=== PATIENT | female | born 1935 | race Hispanic/Latino ===

== ENCOUNTER 2017-04-09 16:04 | Inpatient (IN) | payer MEDICARE ==
[2017-04-09] MEDS ORDERED: Succinylcholine Chloride 20 MG/ML 10 ml SYRINGE FS ONE (16:24)
[2017-04-09] MEDS ORDERED: Fentanyl 100 MCG/2 ML VIAL ONE ×2 (16:24→16:31)
[2017-04-09] MEDS ORDERED: manNITOL 20% 500 ML ONE (16:24)
[2017-04-09] MEDS ORDERED: Calcium Chloride 1 GM/10 ML Abboject SYRINGE ONE (16:24)
[2017-04-09 16:43] LABS: Hematocrit 37.2 % (36.0-47.0); Mean Platelet Volume 7.5 fL (7.4-10.4); Red Blood Cell (RBC) Count 3.63 mill/uL (4.20-5.40); White Blood Cell (WBC) Count 24.4 thou/uL (4.8-10.8)
[2017-04-09] MEDS ORDERED: niCARdipine 20MG In NaCl 0 MG/0 ML BAG ONE (16:55)
[2017-04-09] MEDS ORDERED: Propofol 1,000 MG/100 ML VIAL IV ONE (16:55)
[2017-04-09] MEDS ORDERED: Labetalol HCl 100 MG/20 ML VIAL ONE (16:55)
[2017-04-09 17:01] LABS: Band 1 % (5-11); Neutrophil 94 % (42-75)
--- NOTE | 2017-04-09 17:02 | CT ---
CT HEAD WITHOUT IV CONTRAST: Date: 04/09/17 HISTORY: Post fall. COMPARISON: 10/11/14. FINDINGS: There is a large area of increased density seen within the left cerebral hemisphere involving predomi nantly the left frontal lobe, and this large area of increased density is consistent with parenchymal hemorrhage which measures 8.5 cm AP x 5.0 cm transverse. There is evidence of subarachnoid hemorrhag e within the frontal lobes bilaterally as well. There is intraventricular extension of hemorrhage wit h dilatation of the ventricular system bilaterally when compared to the prior exam. There is edema malin rrounding the large area of hemorrhage in the left cerebral hemisphere. There is shift of the midline structures to the right measuring 15-16 mm. There is mild narrowing in the region of the basilar cisterns when compared to the prior exam, suggesting impending uncal hernia tion as well. There is an area of encephalomalacia in the right anterior frontal lobe consistent with prior area of hemorrhage which was noted on the prior exam. No calvarial fracture is seen. Visualized paranasal sinuses and mastoid air cells are clear. IMPRESSION: 1. Large parenchymal hematoma in the left cerebral hemisphere, as well as bilateral subarachnoid hem orrhage and intraventricular extension of hemorrhage. 2. Shift of the midline structures to the right measuring 15-16mm. There is also effacement of the b asilar cisterns when compared to the prior exam in 2014 suggesting impending uncal herniation as well . There is evidence of mild hydrocephalus when compared to the prior exam. 3. Encephalomalacia right anterior frontal lobe. 4. No evidence of a calvarial fracture Above findings discussed with Dr. Gentile on 04/09/17 at 1618 hours. CODE CR. POS: [facility]
[2017-04-09 17:03] LABS: Troponin I 0.617 ng/mL (< 0.028)
[2017-04-09 17:04] LABS: ALT (SGPT) 22 U/L (8-55); AST (SGOT) 46 U/L (5-34); Alkaline Phosphatase 102 U/L (40-150); Anion Gap 21 mmol/L (10-20); BUN (Urea Nitrogen) 19 mg/dL (9.8-20.1); Bilirubin, Total 0.9 mg/dL (0.2-1.2); Calc. Creatinine Clearance 0 mL/min (70-130); Calcium 8.7 mg/dL (7.8-10.44); Carbon Dioxide 16 mmol/L (23-31); Chloride 104 mmol/L (98-107); Estimated GFR-MDRD 58; Globulin 3.3 g/dL (2.4-3.5); Protein, Total 7.4 g/dL (6.0-8.3)
[2017-04-09 17:10] LABS: Oxyhemoglobin 97.7 % (94.0-97.0); Sodium 138 mmol/L (135-148)
[2017-04-09 17:11] LABS: Mechanical Tidal Volume 400 ml; Mode SIMV/PS; Modified Allen's Test POSITIVE; Pressure Support 10 cmH2O; Vent YES
--- NOTE | 2017-04-09 17:21 | PRG ---
DATE OF SERVICE: 04/09/2017 SUBJECTIVE: Ms. Walls is an 82-year-old female that presented to the emergency department. She unde rwent a noncontrast head CT which revealed a very large hemispheric left-sided dominant hemispheric i ntraparenchymal hemorrhage with substantial degree of midline shift and associated herniation. OBJECTIVE: Upon my presentation to the emergency room, patient was nonresponsive. She did have some agonal breathing. She had fixed pupils bilaterally. She did not respond to stimulation. ASSESSMENT AND PLAN: Ms. Walls has suffered a very large intracerebral hemorrhage. This is one that in my opinion is nonoperative and is almost certainly to be a terminal hemorrhage. The ER physician has spoken to the family and for the time being, they want her to be full code until further family can arrive at the hospital. I have relayed to the ER physician that our plans are to pursue this wit h medical management alone without plans for surgery given what is the devastating nature of her hemo rrhage.
[2017-04-09 17:59] LABS: Bilirubin Negative (Negative); Blood, Urine Trace (Negative); Glucose, Urine (Dipstick) 250 mg/dL (Negative); Ketone, Urine 15 mg/dL (Negative); Nitrite Negative (Negative); Protein, Urine (Dipstick) Negative (Neg-Trace); Urobilinogen 0.2 mg/dL (0.2-1.0)
[2017-04-09 18:11] LABS: Bacteria/HPF None Seen HPF (None Seen); Hyaline Casts/LPF 0-3 HYALINE CAST LPF (0-3 Hyaline); RBC/HPF 0-3 HPF (0-3); Squamous Epithelial None Seen HPF (0-3); WBC/HPF None Seen HPF (0-3)
[2017-04-09 18:14] LABS: Prothrombin Time 14.4 SEC (12.0-14.7)
[2017-04-09 18:31] LABS: Magnesium 1.7 mg/dL (1.6-2.6)
[2017-04-09 18:32] LABS: Lactic Acid - Sepsis 5.4 mmol/L (0.5-2.2)
--- NOTE | 2017-04-09 18:49 | RAD ---
AP CHEST: History: Intubation. FINDINGS: AP chest demonstrates a nasogastric tube in place, distal tip not visualized. The patient has been in tubated. Endotracheal tube is in the right main stem bronchus. This should be pulled back approximate ly 3-4 cm to be in optimum location. IMPRESSION: Endotracheal tube is in the right mainstem bronchus. The lungs are otherwise unremarkable with no ying dence of acute intrathoracic abnormalities seen. Findings called to Dr. Walls at 5:59 p.m. 04-09-17. Code CR POS: [facility]
[2017-04-09 19:49] LABS: Troponin I 3.297 ng/mL (< 0.028)
[2017-04-09] MEDS ORDERED: Ondansetron ODT 4 MG TAB SL PRN (19:50)
[2017-04-09] MEDS ORDERED: Ondansetron HCl/PF 4 MG/2 ML Vial IVP PRN (19:50)
[2017-04-09] MEDS ORDERED: Acetaminophen 325 MG TAB PO PRN (19:50)
[2017-04-09] MEDS ORDERED: Fentanyl 20 MCG/ML 250 ML IVPB SCH ×2 (19:51→20:08)
[2017-04-09] MEDS ORDERED: DISCONTINUE PREVIOUS NARCOTIC PAIN MEDICATIONS AND BENZODIAZEPINES FS SCH ×2 (19:51→20:08)
[2017-04-09] MEDS ORDERED: Propofol 1,000 MG/100 ML VIAL IV PRN ×2 (19:51→20:08)
[2017-04-09] MEDS ORDERED: Lorazepam 2 MG/ML VIAL SLOW IVP PRN ×2 (19:51→20:08)
[2017-04-09] MEDS ORDERED: Sodium Chloride 0.9% 1,000 ML IV SCH ×2 (20:00→20:30)
[2017-04-09] MEDS ORDERED: Ventilator Sedation Protocol 1 EACH FS SCH (20:02)
[2017-04-09] MEDS ORDERED: Morphine 2 MG/ML SYRINGE SLOW IVP PRN (20:08)
--- NOTE | 2017-04-09 20:11 | RAD ---
AP CHEST: History: Fall. Date: 04-09-17 Comparison: 04-09-17 FINDINGS: AP chest demonstrates a nasogastric tube to be in good position. Endotracheal tube has been pulled ba ck, distal tip in good position above the norma. The lungs are well aerated. No evidence of acute in trathoracic abnormality seen. IMPRESSION: Endotracheal and nasogastric tubes in good position. POS: [facility]
[2017-04-09] MEDS ORDERED: Potassium Chloride 40 MEQ in Sodium Chloride 0.9% 250 ML 250 ML IVPB PRN (20:18)
[2017-04-09] MEDS ORDERED: Magnesium Oxide 400 MG TAB PO PRN ×2 (20:18)
[2017-04-09] MEDS ORDERED: Potassium Chloride 40 MEQ in Premix Bag 1 BAG IVPB PRN (20:18)
[2017-04-09] MEDS ORDERED: Potassium Chloride 20 MEQ TAB PO PRN (20:18)
[2017-04-09] MEDS ORDERED: Magnesium 2 GM/NS 0.9% 100 ML 2 GM in Premix Bag 1 BAG IVPB PRN (20:18)
[2017-04-09] MEDS ORDERED: CCU ELECTROLYTE REPLACEMENT PROTOCOL FS PRN (20:18)
[2017-04-09] MEDS ORDERED: Potassium Phosphate 12 MMOL in Sodium Chloride 0.9% 250 ML 250 ML IV PRN (20:18)
[2017-04-09] MEDS ORDERED: Potassium Phosphate 15 MMOL in Sodium Chloride 0.9% 250 ML 250 ML IV PRN (20:18)
[2017-04-09] MEDS ORDERED: Potassium Phosphate 9 MMOL in Sodium Chloride 0.9% 100 ML IVPB PRN (20:18)
[2017-04-09] MEDS ORDERED: Labetalol HCl 100 MG/20 ML VIAL SLOW IVP PRN (20:19)
[2017-04-09] MEDS: Sodium Chloride 0.9% 1,000 ML IV SCH (20:21)
[2017-04-09 20:45] VITALS: BMI 22.5
[2017-04-09] MEDS ORDERED: hydrALAZINE 20 MG/ML VIAL SLOW IVP PRN (21:23)
[2017-04-09] MEDS: hydrALAZINE 20 MG/ML VIAL SLOW IVP PRN (21:48)
[2017-04-09] MEDS: Mannitol 12.5 GM/50 ML SLOW IVP SCH (21:49)
[2017-04-10] MEDS: Mannitol 12.5 GM/50 ML SLOW IVP SCH ×3 (03:29→15:08)
[2017-04-10 04:59] LABS: Anion Gap 14 mmol/L (10-20); BUN (Urea Nitrogen) 14 mg/dL (9.8-20.1); Calc. Creatinine Clearance 39 mL/min (70-130); Calcium 8.7 mg/dL (7.8-10.44); Carbon Dioxide 20 mmol/L (23-31); Chloride 106 mmol/L (98-107); Estimated GFR-MDRD 68; Magnesium 1.8 mg/dL (1.6-2.6)
[2017-04-10 05:31] LABS: #Lymphocytes 1.3 thou/uL (1.20-3.40); #Monocytes 1.9 thou/uL (0.11-0.59); #Neutrophils 11.9 thou/uL (1.40-6.50); %Basophils 0.1 % (0.0-1.0); %Eosinophils 0.1 % (0.0-10.0); %Lymphocytes 8.9 % (21.0-51.0); %Monocytes 12.7 % (0.0-10.0); Hematocrit 32.1 % (36.0-47.0); Mean Platelet Volume 7.9 fL (7.4-10.4); Red Blood Cell (RBC) Count 3.23 mill/uL (4.20-5.40); White Blood Cell (WBC) Count 15.2 thou/uL (4.8-10.8)
[2017-04-10 07:33] LABS: Oxyhemoglobin 97.7 % (94.0-97.0); Sodium 139 mmol/L (135-148)
[2017-04-10 07:37] LABS: Mechanical Tidal Volume 400 ml; Mode SIMV.PSV; Modified Allen's Test POSITIVE; Pressure Support 10 cmH2O; Vent YES
[2017-04-10] MEDS: Sodium Chloride 0.9% 1,000 ML IV SCH ×2 (08:31→21:18)
[2017-04-10] MEDS ORDERED: FLU VACC TS2017-18 (>65YR) 0.5 ML SYRINGE IM ONE (09:00)
--- NOTE | 2017-04-10 13:58 | CON ---
DATE OF CONSULTATION: 04/10/2017 HISTORY: Mare Walls is an 82-year-old unfortunate female from [place], [place] who yao arently fell in the kitchen about 8 or 9 o'clock in the morning. Her lifted her and placed h er on a couch and about 4 o'clock called the ambulance who brought her to the ER where upon arrival s he was found to have a large intracerebral hemorrhage. In 09/2014, she apparently had a right frontal lobe intraparenchymal hemorrhage. She was discharged home thereafter in a stable condition. In fact, she is walking and relatively active. PAST MEDICAL HISTORY: Pertinent mainly for previous CVA, no history of diabetes, hypertension. PAST SURGICAL HISTORY: Hysterectomy. CHRONIC MEDICATIONS: Lisinopril 20, amlodipine 5. REVIEW OF SYSTEMS: Unobtainable. PHYSICAL EXAMINATION: GENERAL: She is unresponsive. HEENT: Pupils are 2 mm. VITAL SIGNS: Blood pressure 130/80, pulse 80, respirations 18. CHEST: Chest reveals decreased breath sounds, no wheezing. CARDIAC: Normal S1-S2. No gallops. ABDOMEN: Soft, no masses. CT showed a very large left-sided intracerebral hemorrhage, substantial midline shift. Lab otherwise shows white count 15,000, H&H 10 and 32, platelet count 153, pO2 150, pCO2 26, pH 7.52, on a rate of 14, 40%, 4 tidal volume. Electrolytes are normal. Troponin was elevated at 3.29. IMPRESSION: 1. Large left intracerebral hemorrhage with midline shift and elevated troponin. 2. Respiratory failure. PLAN: Comfort care. Await input from Neurosurgery. Prognosis is grave. I will follow while in the ICU. Forty-five minutes critical care time.
--- NOTE | 2017-04-10 14:11 | PDOC.PN ---
- Subjective Encounter Start Date: 04/10/17 Encounter Start Time: 10:30 -: non-verbal Pt seen earlier onrounds, daughter Leslee at the bedside, case discussd, results conveyed. Pt stable overnight. Overbreatihing Vent. rate set to 10, sheis breatihng 15- 16 BPM. NO F/c, no diarrhea, no arrhythmias. BP in normal range. Pulm/CC to see, cancelled cardiology consult for now as they cannot intervene at present, no anticoagulation possible. Echo to be done. Since my visit and prior to this note, Pt seen by palliative care, family changed form full code to DNR. - Objective Resuscitation Status: Resuscitation Status DNR:Do Not Resuscitate MAR Reviewed: Yes Vital Signs & Weight: Vital Signs (12 hours) Temp Pulse Resp BP Pulse Ox 04/10/17 12:00 16 04/10/17 11:00 101 F H 04/10/17 10:53 99 139/59 L 04/10/17 10:00 15 04/10/17 08:00 99.4 F 90 13 100 04/10/17 06:51 95 109/52 L 04/10/17 05:42 0 L 04/10/17 04:52 94 04/10/17 04:00 100.8 F H 04/10/17 03:39 0 L 04/10/17 02:54 90 Weight Admit Weight 104 lb Weight 104 lb 0.931 oz Most Recent Monitor Data Heart Rate from ECG 97 NIBP 156/67 NIBP BP-Mean 109 Respiration from ECG 27 SpO2 100 I&O: 04/09/17 04/10/17 04/11/17 06:59 06:59 06:59 Intake Total 734 Output Total 2185 430 Balance -1451 -430 Result Diagrams: 04/10/17 04:20 04/10/17 04:20 Radiology Reviewed by me: Yes EKG Reviewed by me: Yes Phys Exam - Physical Examination Constitutional: NAD HEENT: PERRLA, moist MMs, sclera anicteric, oral pharynx no lesions pupils 2-3mm and miminally reacitve bilaterally Neck: no nodes, no JVD, supple, full ROM Respiratory: no wheezing, no rales, no rhonchi, clear to auscultation bilateral Cardiovascular: RRR, no significant murmur, no rub clightly tachy on 90s to 100s Gastrointestinal: soft, no distention, positive bowel sounds Musculoskeletal: no edema, pulses present decerebrate posturing, no tonic-clonic activity. Dolls eyes Lymphatic: no nodes Skin: no rash, normal turgor, cap refill <2 seconds Dx/Plan (1) Acute hypoxemic respiratory failure Code(s): J96.01 - ACUTE RESPIRATORY FAILURE WITH HYPOXIA Status: Acute Comment: on vent, not on sedation, overbreathing rate 10 (2) Hypertensive emergency Code(s): I16.1 - HYPERTENSIVE EMERGENCY Status: Resolved Comment: BP controlled (3) Fall on same level Code(s): W18.30XA - FALL ON SAME LEVEL, UNSPECIFIED, INITIAL ENCOUNTER Status : Acute Qualifiers: Encounter type: initial encounter Qualified Code(s): W18.30XA - Fall on same level, unspecified, initial encounter (4) HTN (hypertension) Code(s): I10 - ESSENTIAL (PRIMARY) HYPERTENSION Status: Chronic Qualifiers: Hypertension type: essential hypertension Qualified Code(s): I10 - Essential (primary) hypertension (5) ICH (intracerebral hemorrhage) Code(s): I61.9 - NONTRAUMATIC INTRACEREBRAL HEMORRHAGE, UNSPECIFIED Status: Acute Qualifiers: Intracerebral hemorrhage etiology: traumatic Encounter type: initial encounter Laterality: left Loss of consciousness presence/duration: with LOC of unspecified duration Qualified Code(s): S06.359A - Traumatic hemorrhage of left cerebrum with loss of consciousness of unspecified duration, initial encounter - Plan cont current plan of care, plan discussed w/ family, psych social worker, respiratory therapy * .
[2017-04-10] MEDS: hydrALAZINE 20 MG/ML VIAL SLOW IVP PRN ×2 (15:40→15:55)
[2017-04-10] MEDS ORDERED: Famotidine/PF 20 mg/2ml Vial SLOW IVP SCH (21:00)
--- NOTE | 2017-04-10 21:15 | HP ---
PRIMARY CARE PHYSICIAN: Unknown and out of town. CHIEF COMPLAINT: Fall and intracerebral hemorrhage. HISTORY OF PRESENT ILLNESS: Ms. Walls is an 82-year-old [place]-F[place] female with a history of hype rtension who apparently fell at 0900 on the day of admission, 04/09/2017. EMS was called and as she was being transferred, she had a worsening mental status en route. She arr ived to the Emergency Department and was unable to protect her airway and was subsequently intubated. A CT scan showed a large left hemispheric intracerebral hemorrhage with extension of the ventricles a nd a small subarachnoid hemorrhage. Neurosurgery was consulted and felt this was inoperable and so p lans were made to admit to the ICU for mannitol, blood pressure control, ventilator management and di scussion with the family. Medical power of associate attorney lives in [place] and is currently on route and wished to be a FULL CODE a t least so she gets here. CT scan did show 15 mm shift from midline. In the Emergency Department, she was given mannitol, placed on the ventilator. Neurosurgery was cons ulted, placed the patient on propofol given labetalol and succinylcholine. Family was at the bedside and updated current condition. The patient is sedated on the ventilator, saroj mueller to give me further history. She lives with her , who is demented, who is not present, b ut apparently he was unable to give any further history either. PAST MEDICAL HISTORY: 1. Hypertension. 2. History of intracranial hemorrhage a few years ago. PAST SURGICAL HISTORY: Hysterectomy, ovary status unknown. HOME MEDICATIONS: 1. Norvasc 5 mg daily. 2. Lisinopril 20 mg p.o. at bedtime. ALLERGIES: NKDA. FAMILY HISTORY: Negative for clotting or bleeding disorder, no immune dysfunction SOCIAL HISTORY: Significant for occasional alcohol. No known IV drug use or tobacco use. REVIEW OF SYSTEMS: Not obtainable. PHYSICAL EXAMINATION: VITAL SIGNS: Temperature 96.4, pulse 80, blood pressure 139/58, respiratory rate 24, satting 100% on FiO2 of 1.0. She is on SIMV. Tidal volume 400, rate of 14, pressure support of 10 and PEEP of 5. GENERAL: She is nonsedated, but nonresponsive. She is in no distress on the ventilator. HEENT: She is normocephalic and atraumatic. Her pupils are 2-3 mm and minimally reactive. She has no blown pupils. She does have doll's eyes. Of note, she also did get succinylcholine. NECK: Supple. There is no lymphadenopathy, JVD or thyromegaly. She has oral endotracheal tube in p lace. She has normal carotid upstrokes. I do not appreciate bruits. LUNGS: Clear to auscultation bilaterally. She has had no wheezes, no rales, no rhonchi with good ai r movement. CARDIOVASCULAR: Tachycardic and regular. She has no audible murmurs. ABDOMEN: Soft, is nondistended with normoactive bowel sounds. EXTREMITIES: Show no edema. SKIN: Warm was well perfused. She has no rashes, no lesions. MUSCULOSKELETAL: is normal to inspection. She has no inflamed joints. No palpable joint effusions. She has no evidence of trauma to her head. NEUROLOGIC: Not testable. She is in decerebrate posturing. Her extensor groups were are all tense. She does have pronation of her arms. On plantar stimulation, she does have upgoing toes. LABORATORY EVALUATION: CMP is fairly normal. Potassium is slightly low at 3.2. Creatinine is 0.92. Calcium normal at 8.7. AST slightly elevated at 46. CBC showed white count of 24.4 with 94% granu locytes, hemoglobin of 11.9, hematocrit of 37.2 and platelet count of 157,000. IMAGING DATA: CT scan showed a large left hemispheric bleed with impending uncal herniation. Chest x-ray showed endotracheal tube in place. ASSESSMENT AND PLAN: 1. Intracranial hemorrhage, large: Unsure if this is from the fall or more likely as a result of he r blood pressure in the 220s/110s on arrival. Blood pressure is down. I cannot put on any blood thi nners. Troponin is slightly abnormal. We will admit her to the ICU on the ventilator, we will lilliana nue mannitol, and will monitor for any signs of deterioration. At this time, she is still a FULL COD E. 2. Elevated troponin: Troponin was 0.617, CK-MB elevated at 9.4. We will get a CK. A cardiology c onsult was initially placed; however, they cannot do any intervention now. We will get a 2D echocard iogram Cardiology. 3. Acute hypoxemic respiratory secondary to altered mental status from her bleed: The patient is on the ventilator. We will continue current management. 4. Hypertension: We will use p.r.n. hydralazine 5 mg every 15 minutes p[address]r.n. systolic pressure grea ter than 170 to keep or below that level. Overall, prognosis is poor. We will continue to keep her FULL CODE until family gets here. Her medi emilia power of associate attorney is her daughter, named Leslee, phone number [phone] and she is the medical d ecision maker.
[2017-04-11 00:17] LABS: Anion Gap 13 mmol/L (10-20); BUN (Urea Nitrogen) 15 mg/dL (9.8-20.1); Calc. Creatinine Clearance 26 mL/min (70-130); Calcium 9.7 mg/dL (7.8-10.44); Carbon Dioxide 19 mmol/L (23-31); Chloride 123 mmol/L (98-107); Estimated GFR-MDRD 44; Magnesium 2.8 mg/dL (1.6-2.6)
[2017-04-11] MEDS ORDERED: Norepinephrine 8 MG/0.9% NS 250 ML ONE (01:55)
[2017-04-11] MEDS ORDERED: Norepinephrine 8 MG/250 ML BAG IVPB PRN (01:57)
[2017-04-11 07:17] VITALS: BP 104/40
[2017-04-11 07:53] VITALS: TEMP 94.5
--- NOTE | 2017-04-11 08:54 | RAD ---
AP VIEW OF THE CHEST: Date: 04/11/17 INDICATION: Fall with trauma. COMPARISON: Prior exam dated 04/09/17. FINDINGS: There has been interval development of a small left pleural with a left basilar air space opacity see n adjacent to the left lateral costophrenic angle. The right lung is clear. No pneumothorax is eviden t. The patient remains intubated with ET tube tip seen 3.0 cm above the level of the norma. Gastric catheter projects in the region of the body of the stomach. No acute osseous abnormality is identifie d. IMPRESSION: 1. New small left pleural effusion with suspected left basilar atelectasis. Continued follow-up is r ecommended. 2. Stable tubes and lines. 3. No pneumothorax. POS: [facility]
--- NOTE | 2017-04-11 11:56 | PRG ---
DATE OF SERVICE: 04/11/2017 The patient is intubated on the vent. Neurosurgery saw her yesterday, said large intracerebral hemor rhage, not a surgical candidate. This morning she is unresponsive. Pupils are fixed and dilated. S he is not assisting the vent. PHYSICAL EXAMINATION: VITAL SIGNS: Pulse is 90, blood pressure was 102/46, respiratory rate 18. Cut back on the rate fro m 10 to 8. She is not assisting the vent. CHEST: Chest reveals decreased breath sounds without any wheezing. CARDIAC: Normal S1, S2. ABDOMEN: Soft, no masses. Sodium 151, creatinine 1.58. IMPRESSION: 1. Massive left side intracerebral hemorrhage. 2. Respiratory failure. PLAN: As per the family's wishes, she is going to be extubated. She is a DNR.
--- NOTE | 2017-04-11 13:56 | DS ---
DATE OF ADMISSION: 04/09/2017 DATE OF : 04/11/2017 CAUSE OF : 1. Cardiac arrest, immediate. 2. Acute hypoxemic respiratory failure, 48 hours. 3. Hypertensive intracerebral hemorrhage, left-sided. 4. Hypertensive urgency. CONSULTATIONS: 1. Neurosurgery, was seen by [place] in the emergency department. 2. Pulmonary Critical Care, seen by Dr. Burt Chavarria on 04/10/2017 and 04/11/2017. HISTORY AND PHYSICAL: Ms. Walls is an 82-year-old female with a history of hypertension, small prior hemorrhagic stroke who presented to emergency department after being found down. She had been complaining of headache and suddenly got worse throughout the day and more somnolent. She fell at home and EMS was activated. She was brought to the emergency department for evaluation, decompensating on the way. She was immediately intubated on arrival. CT scan showed a baseball-sized left cerebral intracerebral hemorrhage with extension into the lateral ventricles and a small subarachnoid space. Family at the bedside at the time wanted everything done, medical power of tax attorney, Leslee, was contacted, we were called for admission. The patient was seen and examined by me in the ER and admitted to the ICU. She was given mannitol, p.r.n. hydralazine, and family members were gathered. Overnight, she remained stable on the ventilator. On 04/10/2017, family again met. Prognosis remained poor. She was off sedation. Continued decerebrate posturing and remained unresponsive. Today, the family decided to withdraw care , so she was terminally extubated and quickly . PHYSICAL EXAMINATION: The patient was seen and examined on the day of discharge. Terminal extubation plan was discussed face to face with the entire family at the bedside. Disposition: Body was released to the [facility], family is making home arrangements. Autopsy was not indicated. TIME OF : 947 on 04/11/2017. [facility]
--- NOTE | 2017-04-28 10:46 | EKG ---
Test Reason : Blood Pressure : / mmHG Vent. Rate : 090 BPM Atrial Rate : 090 BPM P-R Int : 156 ms QRS Dur : 070 ms QT Int : 400 ms P-R-T Axes : 077 059 080 degrees QTc Int : 489 ms Sinus rhythm with Premature atrial complexes ST depression, consider subendocardial injury or digitalis effect Abnormal ECG Confirmed by STEPHANIE Hoang, MARY ([id number]), telegraph editor JOSE L PICKERING ([id number]) on 04/28/2017 10:46:33 AM Referred By: Confirmed By:MARY BROWN M.D.
== END 2017-04-11 11:28 | disposition expired | DRG 64 ==
LOC: ERS 16:04 → CCU 17:52
PROVIDERS: ADMIT Internal Medicine Infectious Disease; ATTEND Internal Medicine Infectious Disease
PROC: 5A1945Z Respiratory Ventilation, 24-96 Consecutive Hours (ICD-10-PCS; principal; 2017-04-09)
PROC: 0BH17EZ Insertion of Endotracheal Airway into Trachea, Via Natural or Artificial Opening (ICD-10-PCS; 2017-04-09)
DX: I61.9 Nontraumatic intracerebral hemorrhage, unspecified (principal); G93.5 Compression of brain; J96.01 Acute respiratory failure with hypoxia; I60.9 Nontraumatic subarachnoid hemorrhage, unspecified; I16.0 Hypertensive urgency; I46.9 Cardiac arrest, cause unspecified; Z86.73 Personal history of transient ischemic attack (TIA), and cerebral infarction without residual deficits; Z51.5 Encounter for palliative care; I10 Essential (primary) hypertension
CPT/HCPCS: 31500; 36415; 51702; 70450; 71010; 80048; 80053; 81003; 81015; 82553; 82805; 83605; 83735; 84484; 85025; 85610; 93005; 93306; 94002; 94003; 96365; 96366; 96367; 96375; J0360; J2060; J2150; J2270; J2704; J3010; J3475; J7050; J7799; S0028